=== PATIENT | male | born 1995 | race Caucasian/White ===

== ENCOUNTER 2021-04-14 20:44 | Inpatient (IN) | payer OTHER, SELFPAY ==
[2021-04-14] MEDS: traZODone HCL 50 MG TABLET PO (22:52)
[2021-04-14] MEDS: OLANZapine ODT 10 MG TAB.RAPDIS TRANSLINGU (22:52)
[2021-04-14 23:05] VITALS: BP 104/59; PULSE 56; TEMP 36
[2021-04-14 23:17] VITALS: BMI 19.8
--- NOTE | 2021-04-15 00:22 | PC.NURSE ---
Pt is a CV, but signed a 3-day notice shortly after arriving on unit. Pt's belongings are lost at [facility] per EMS who brought pt. EMS said [facility] will send belongings to [facility] when they are found.
--- NOTE | 2021-04-15 00:24 | PC.ADMIT ---
A male pt aged 25 years was admitted to [facility] as [facility] CV at 2101 following referral from [facility] and [facility] ED. Pt has no previous admissions here but has IPLOC elsewhere. Pt had two [facility] assessments in February 2021 presenting then as delusional, disorganized with some question if pt could be safe at home as he had turned on a burner for the stove and walked away for hours. Pt's brother reports that in the past year pt has engaged in headbanging, running from things that are not there and knife throwing. Brother also reported pt has a history of presenting as ok, then returns home and continues with unsafe behaviors and mood changes. Pt lives with his mother and 3 sisters. Pt is not able to return home until he is stabilized on medications per pt's brother. Pt's sister called for this [facility] assessment reporting pt was headbanging, not taking medications and trying to kill himself . Sister reported pt had run into oncoming traffic and was thinking someone was following himCare team assessment indicates pt has poor self control and is a risk for elopement. Pt was calm and cooperative, but denied anxiety/depression, AH/VH, and paranoia. Pt reported poor sleep r/t insomnia and frequent awakening. Pt willingly took medications, but was focused on whether they would help with sleep. Medical issues include only a history of finger surgery, ring finger, right hand in 2018. Pt c/o body and finger pain 6-7/10, but declined PRN med for pain. Pt denied use of Etoh or substances then admitted cocaine use; t POTRER was positive for cocaine. Pt had Section 35 in January 2021.Pt was placed on 5 minute safety checks with unlocked bathroom and is resting in room at this time. [id number]-[id number]-[id number] and Dr-to-Dr done; initial treatment plan done and admission orders obtained.
[2021-04-15 05:51] VITALS: BP 109/60; PULSE 62; TEMP 36.2; O2SAT 97
[2021-04-15 08:10] LABS: Estimated Average Glucose 100 mg/dL; Hemoglobin A1c % 5.1 %
[2021-04-15 08:22] LABS: Alanine Aminotransferase 24 U/L (0-40); Albumin Level 4.1 g/dL (3.5-5.0); Alkaline Phosphatase 75 U/L (39-117); Anion Gap 12 (12-20); Aspartate Amino Transferase 21 U/L (5-37); Bilirubin Total 0.3 mg/dL (0.0-1.0); Blood Urea Nitrogen 15 mg/dL (9-16); Calcium 9.3 mg/dL (8.4-10.2); Carbon Dioxide 25 mmol/L (22-29); Chloride 108 mmol/L (96-108); Cholesterol 173 mg/dL; Creatinine Clr Calc Pharmacy 98.5; Estimated Glomerular Filt Rate > 60; Glucose Fasting 98 mg/dL (60-99); HDL Cholesterol 49 mg/dL; LDL Cholesterol Calculated 104 mg/dl; Potassium 4.3 mmol/L (3.3-5.1); Sodium 141 mmol/L (135-145); Total Protein 6.8 g/dL (6.5-8.0); Triglycerides 104 mg/dL
[2021-04-15 08:46] LABS: Thyroid Stimulating Hormone 1.07 uIU/mL (0.32-4.0)
[2021-04-15] MEDS: OLANZapine ODT 10 MG TAB.RAPDIS TRANSLINGU ×2 (09:11→20:06)
--- NOTE | 2021-04-15 10:48 | P.HPPS_ITS ---
HPI Date of Service: 04/15/21 Chief Complaint: Unspecified Mental Disorder Sources of Information: patient interviewed, chart reviewed and crisis/core team assessment reviewed HPI Subjective Notes: 3 Day Healthcare Proxy: No Guardianship: No Medical Problems Affecting Mental Status: No Narrative: 25 year old man who was referred from [facility]. He had presented with increased agitation, delusions, paranoia and medication non-compliance. There is also a question of substance abuse. He has had some behavioral dyscontrol with head banging and threatening his family members. He reportedly had a psychiatric admission in [facility]. Prakash himself denies that he has any difficulty. He reports that he went to the ER because of finger pain. He gave monosyllabic answers, and denied any symptoms. He was notably dishevelled and withdrawn. He appears to be responding to internal stimuli Past Psychiatric History: Admission in February 2021 Medical Evaluation Reviewed: Yes [facility] Surgical History History of arthroplasty of finger of right hand Family History: Unknown Social History: Lives with family Substance History: Cocaine Diagnostics Vital Signs (24Hr): Vital Signs - 24 hr 04/14/21 23:05 04/15/21 05:51 Temperature 96.8 F 97.1 F Pulse Rate 56 62 Blood Pressure 104/59 L 109/60 Pulse Oximetry 97 BMI result Body Mass Index 19.8 Labs Results: 04/15/21 07:16 Labs: Laboratory Results - last 48 hr 04/15/21 04/15/21 07:16 07:16 Sodium 141 Potassium 4.3 Chloride 108 Carbon Dioxide 25 Anion Gap 12 BUN 15 Creatinine 0.94 Estim Creat Clear Calc 98.5 Estimated GFR > 60 Fasting Glucose 98 Estimat Average Glucose 100 Hemoglobin A1c % 5.1 Calcium 9.3 Total Bilirubin 0.3 AST 21 ALT 24 Alkaline Phosphatase 75 Total Protein 6.8 Albumin 4.1 Triglycerides 104 Cholesterol 173 LDL Cholesterol, Calc 104 HDL Cholesterol 49 TSH 1.07 Meds/Allergies Meds Home Medications Acetaminophen (Acetaminophen 325 Mg Tablet) 650 mg PO Q6H PRN PRN Reason: Headache/Pain Mild Scale (1-3) Al Hydroxide/Mg Hydroxide (Magnesium Hydrox/Alum Hydrox 30 Ml Oral.Susp) 30 ml PO Q6H PRN PRN Reason: Heartburn/Nausea Haloperidol (Haloperidol 5 Mg Tablet) 5 mg PO Q6H PRN PRN Reason: agitation Hydroxyzine HCl (Hydroxyzine Hcl 25 Mg Tablet) 25 mg PO Q6H PRN PRN Reason: Anxiety Lorazepam (Lorazepam 1 Mg Tablet) 1 mg PO Q4H PRN PRN Reason: anxiety/agitation/sleep Magnesium Hydroxide (Milk Of Magnesia 30 Ml Oral.Susp) 30 ml PO DAILY PRN PRN Reason: Constipation Olanzapine (Olanzapine Odt 10 Mg Tab.Rapdis) 10 mg TRANSLINGU BID ANA Last Admin: 04/15/21 09:11 Dose: 10 mg Documented by: Trazodone HCl (Trazodone Hcl 50 Mg Tablet) 50 mg PO BEDTIME PRN PRN Reason: Insomnia Last Admin: 04/14/21 22:52 Dose: 50 mg Documented by: Allergies Allergies Allergy/AdvReac Type Severity Reaction Status Date / Time No Known Allergies Allergy Verified 04/14/21 14:39 Mental Status Exam Mental Status Exam Patient Appearance: Disheveled Patient Orientation: Person and Place Level of Consciousness: Restless Patient Behavior: Guarded, Restless, Fatigued, Isolative and Uncooperative Mood Description: Apathetic and Blunted Affect Description: Blunted Patient Cognition Impaired: No Ability to Follow Directions: Fair Speech Pattern: Monotone Hallucinations: Auditory Delusions: Paranoid Ideation and Present Thought Content: positive for Thought Blocking, positive for Slowed Thinking, ne gative for Suicidal Ideation or negative for Homicidal Ideation Judgement: Poor Assessment & Plan Assessment & Plan (1) Schizophrenia: Status: Acute Code(s): F20.9 - Schizophrenia, unspecified Assessment and Plan: 25 year old man with psychosis, in the context of medication non-compliance and substance abuse 3 day notice 5 min checks Resume olanzapine Monitor for WD Collect collateral history Patient educated on: diagnosis and medication risk/benefits Informed Consent: does not understand Reason for continued inpatient stay Substantial Risk for: inability to function
[2021-04-15 19:20] VITALS: BP 107/57; PULSE 73; TEMP 30.9
[2021-04-15] MEDS: traZODone HCL 50 MG TABLET PO (20:05)
[2021-04-15] MEDS: Acetaminophen 325 MG TABLET 650 MG PO (20:06)
[2021-04-16] MEDS: OLANZapine ODT 10 MG TAB.RAPDIS TRANSLINGU ×2 (08:14→19:31)
--- NOTE | 2021-04-16 11:36 | P.CNHOSGPS_ITS ---
History of Present Illness Data of Consult Service Date: 04/16/21 Primary Care Provider: Tyler Duffy MD HPI Reason for consult: h and p 25M Admitted to inpatient psychiatry for increased agitation delusions and paranoia. Patient is poor historian, but denies any active medical issues, is not on any chronic medications. Denies chest pain, shortness of breath, fever chills Review of Systems Review of Systems: Yes all other systems are reviewed and are negative PMFSH Pertinent family history: patient says he does not know his families medical conditions Surgical History History of arthroplasty of finger of right hand Social History Household Members: Family Housing: Apartment Do you presently have visiting nurse or other home services: No Patient Tobacco Use Status: Current everyday Tobacco user Tobacco use type: Cigarette Cigarettes Per Day: 4 Years Smoked: less than one year Smoked in Last 30 Days: Yes e-Cigarette/Vaping Use: Never Used Patient Interested in Nicotine Replacement: Yes (Pt wants PRN Nicotine gum) Patient Given Instructions on How to Stop Smoking: Yes (T not interested in quitting at this time) Date Education Initiated: 04/14/21 Second Hand Smoke Exposure: No Substance Use Type: Crack/Cocaine Substance Use Type Other:: PORTER positive for cocaine and marijuana Last Used Substance: Weeks (ago) Currently Displaying Signs/Symptoms of Drug Intoxication Withdrawal: No Any prior treatment program specific to substance use: Yes (Pt had section 35 recently) Have you been hit, kicked, punched, or otherwise hurt by someone within the past year? If so, by whom?: No Do you feel safe in your current relationship?: No Is there a partner from a previous relationship who is making you feel unsafe now?: No Are you made to feel afraid or neglected: No Spiritual Healthcare Practices: None Pentecostal Healthcare Practices: None Cultural Healthcare Practices: None Advance Directives: No Advance Directives Information Provided: No Advance Directives on File: No Do you have thoughts of harming others: None Do you have a plan to hurt others: No Plan Recently lost weight without trying: No Eating poorly because of decreased appetite: Yes Nutrition Risks: No Nutritional Risk Poor oral hygiene: No Meds Allergies Allergy/AdvReac Type Severity Reaction Status Date / Time No Known Allergies Allergy Verified 04/14/21 14:39 Active Medications: Current Medications Acetaminophen (Acetaminophen 325 Mg Tablet) 650 mg PO Q6H PRN PRN Reason: Headache/Pain Mild Scale (1-3) Last Admin: 04/15/21 20:06 Dose: 650 mg Documented by: Al Hydroxide/Mg Hydroxide (Magnesium Hydrox/Alum Hydrox 30 Ml Oral.Susp) 30 ml PO Q6H PRN PRN Reason: Heartburn/Nausea Haloperidol (Haloperidol 5 Mg Tablet) 5 mg PO Q6H PRN PRN Reason: agitation Hydroxyzine HCl (Hydroxyzine Hcl 25 Mg Tablet) 25 mg PO Q6H PRN PRN Reason: Anxiety Lorazepam (Lorazepam 1 Mg Tablet) 1 mg PO Q4H PRN PRN Reason: anxiety/agitation/sleep Magnesium Hydroxide (Milk Of Magnesia 30 Ml Oral.Susp) 30 ml PO DAILY PRN PRN Reason: Constipation Olanzapine (Olanzapine Odt 10 Mg Tab.Rapdis) 10 mg TRANSLINGU BID ANA Last Admin: 04/16/21 08:14 Dose: 10 mg Documented by: Trazodone HCl (Trazodone Hcl 50 Mg Tablet) 50 mg PO BEDTIME PRN PRN Reason: Insomnia Last Admin: 04/15/21 20:05 Dose: 50 mg Documented by: Results Labs CBC and Chem 7: 04/15/21 07:16 Assessment and Plan (1) Schizophrenia: Status: Acute Plan 25M admitted to inpatient pscyhiatry no active medical issues, please recall as needed Physical Exam Vital Signs: Last Vital Signs Temp 87.7 F L 04/15/21 19:20 Pulse 73 04/15/21 19:20 BP 107/57 L 04/15/21 19:20 Pulse Ox 97 04/15/21 05:51 BMI result Body Mass Index 19.8 Resp: CTA bilateral, no accessory muscles used CVS: S1,S2,RRR GI: soft, non tender, non distended Neuro: motor grossly intact, alert Neuro Cranial nerves: Yes CN's II-XII intact bilaterally
[2021-04-16] MEDS: Ibuprofen 600 MG TABLET PO ×2 (14:12→20:47)
--- NOTE | 2021-04-16 17:28 | P.PNPSI_ITS ---
Subjective Subjective Date of Service: 04/16/21 Reason For Visit: Unspecified Mental Disorder Interim History: Prakash was quite disheveled. He continues to assert that he dose not need any tr eatment. Medication Compliance: Yes Side effects from medications: No Mental Status Exam Mental Status Exam Patient Appearance: Disheveled Patient Orientation: Person and Place Level of Consciousness: Restless Patient Behavior: Guarded, Restless, Fatigued, Isolative and Uncooperative Mood Description: Apathetic and Blunted Affect Description: Blunted Patient Cognition Impaired: No Ability to Follow Directions: Fair Speech Pattern: Monotone Hallucinations: Auditory Delusions: Paranoid Ideation and Present Thought Content: positive for Thought Blocking, positive for Slowed Thinking, negative for Suicidal Ideation or negative for Homicidal Ideation Judgement: Poor Diagnostics Vital Signs (24Hr): Vital Signs - 24 hr 04/15/21 19:20 Temperature 87.7 F L Pulse Rate 73 Blood Pressure 107/57 L BMI result Body Mass Index 19.8 Labs Results: 04/15/21 07:16 Labs: Laboratory Results - last 48 hr 04/15/21 04/15/21 07:16 07:16 Sodium 141 Potassium 4.3 Chloride 108 Carbon Dioxide 25 Anion Gap 12 BUN 15 Creatinine 0.94 Estim Creat Clear Calc 98.5 Estimated GFR > 60 Fasting Glucose 98 Estimat Average Glucose 100 Hemoglobin A1c % 5.1 Calcium 9.3 Total Bilirubin 0.3 AST 21 ALT 24 Alkaline Phosphatase 75 Total Protein 6.8 Albumin 4.1 Triglycerides 104 Cholesterol 173 LDL Cholesterol, Calc 104 HDL Cholesterol 49 TSH 1.07 Medications Medications Current Medications Acetaminophen (Acetaminophen 325 Mg Tablet) 650 mg PO Q6H PRN PRN Reason: Headache/Pain Mild Scale (1-3) Last Admin: 04/15/21 20:06 Dose: 650 mg Documented by: Al Hydroxide/Mg Hydroxide (Magnesium Hydrox/Alum Hydrox 30 Ml Oral.Susp) 30 ml PO Q6H PRN PRN Reason: Heartburn/Nausea Haloperidol (Haloperidol 5 Mg Tablet) 5 mg PO Q6H PRN PRN Reason: agitation Hydroxyzine HCl (Hydroxyzine Hcl 25 Mg Tablet) 25 mg PO Q6H PRN PRN Reason: Anxiety Ibuprofen (Ibuprofen 600 Mg Tablet) 600 mg PO Q6H PRN PRN Reason: Pain, Moderate (Pain Scale 4-6 Last Admin: 04/16/21 14:12 Dose: 600 mg Documented by: Lorazepam (Lorazepam 1 Mg Tablet) 1 mg PO Q4H PRN PRN Reason: anxiety/agitation/sleep Magnesium Hydroxide (Milk Of Magnesia 30 Ml Oral.Susp) 30 ml PO DAILY PRN PRN Reason: Constipation Olanzapine (Olanzapine Odt 10 Mg Tab.Rapdis) 10 mg TRANSLINGU BID ANA Last Admin: 04/16/21 08:14 Dose: 10 mg Documented by: Trazodone HCl (Trazodone Hcl 50 Mg Tablet) 50 mg PO BEDTIME PRN PRN Reason: Insomnia Last Admin: 04/15/21 20:05 Dose: 50 mg Documented by: Allergies Allergies Allergy/AdvReac Type Severity Reaction Status Date / Time No Known Allergies Allergy Verified 04/14/21 14:39 Assessment & Plan Assessment & Plan (1) Schizophrenia: Status: Acute Code(s): F20.9 - Schizophrenia, unspecified Plan 25M admitted to inpatient pscyhiatry no active medical issues, please recall as needed I spent minutes with the patient and/or on the patient floor today, greater than?50% of which was spent counseling/coordinating care. Patient educated on: diagnosis and medication risk/benefits Informed Consent: further education needed Reason for contiued inpatient stay Substantial Risk for: inability to function
[2021-04-16 18:39] VITALS: BP 134/71; PULSE 54
[2021-04-16] MEDS: traZODone HCL 50 MG TABLET PO (19:31)
[2021-04-16] MEDS: hydrOXYzine HCL 25 MG TABLET PO (19:31)
[2021-04-17 06:00] VITALS: BP 110/62; PULSE 54; TEMP 36.3; O2SAT 98
[2021-04-17] MEDS: OLANZapine ODT 10 MG TAB.RAPDIS TRANSLINGU ×2 (08:59→19:26)
[2021-04-17] MEDS: hydrOXYzine HCL 25 MG TABLET PO ×3 (08:59→19:25)
--- NOTE | 2021-04-17 10:04 | HO.PSYCHPN ---
Subjective Subjective Date of Service: 04/17/21 Reason For Visit: Unspecified Mental Disorder Subjective Notes: Alvarado Warning, Conditional Voluntary and 3 Day Interim History: Patient says that [facility] and that original language is Nap[place]e. Baton Twirler offers to get an oxygen furnace operator but patient says that he understands. Patient disheveled; eager to speak with underwriter mortgage loan. Patient says that he had signed a 3 day and would like to go home. Baton Twirler gave Alvarado warning and asked to talk. Patient at 1st said he is fine, he is not sure why he came to unit. Referring to Crisis note, underwriter mortgage loan inquired and pt denies that he banged his head and he denies any made any threats to family or anyone else. He denies any SI or HI. Patient said that he has been worried people are following him a little bit. He does not know why they are following him but he thinks that whoever they are have some bad idea as. He was worried they were waiting for him outside of his house but patient cannot say much more about it. He does endorse having auditory hallucinations that say what to do to wrong question and also endorses that he sometimes hears multiple voices talking to each other about him. Later patient did say he did Bang his head to make the voices stop. It was difficult to know if he hit his head with his hand or on something. Patient did say he ran into the traffic but gave an odd reason saying that he accidentally drinks some water which was hot; he dropped the glass which hurt his hand and in a frantic response ran out into the traffic. He repeatedly denies that he has made any threats to his family. He does give permission to call his family, including his sister Benita and discussed case with him. Patient is willing to take Zyprexa which he has been on the unit. He says he was recently at [facility] for 3 weeks. Patient says he wants to discharge because he has a daughter and son in [facility]. He reiterates that he is ready to go. Mental Status Exam Mental Status Exam Narrative: Patient Appearance:?Disheveled Patient Orientation:?Person and Place Level of Consciousness:?alert, oriented Patient Behavior:?cooperative, calm Mood Description:? good Affect Description:?Blunted Patient Cognition Impaired:?No Ability to Follow Directions:?Fair Thought process: goal oriented; perseverative on discharge Hallucinations:?AH Delusions:?Paranoid Ideation of being followed Thought Content: Denies SI or HI; Judgment/insight:?impaired Diagnostics Vital Signs (24Hr): Vital Signs - 24 hr 04/16/21 18:39 04/17/21 06:00 Temperature 97.4 F Pulse Rate 54 54 Blood Pressure 134/71 110/62 Pulse Oximetry 98 BMI result Body Mass Index 19.8 Labs Results: 04/15/21 07:16 Medications Medications Current Medications Acetaminophen (Acetaminophen 325 Mg Tablet) 650 mg PO Q6H PRN PRN Reason: Headache/Pain Mild Scale (1-3) Last Admin: 04/15/21 20:06 Dose: 650 mg Documented by: Al Hydroxide/Mg Hydroxide (Magnesium Hydrox/Alum Hydrox 30 Ml Oral.Susp) 30 ml PO Q6H PRN PRN Reason: Heartburn/Nausea Haloperidol (Haloperidol 5 Mg Tablet) 5 mg PO Q6H PRN PRN Reason: agitation Hydroxyzine HCl (Hydroxyzine Hcl 25 Mg Tablet) 25 mg PO Q6H PRN PRN Reason: Anxiety Last Admin: 04/17/21 08:59 Dose: 25 mg Documented by: Ibuprofen (Ibuprofen 600 Mg Tablet) 600 mg PO Q6H PRN PRN Reason: Pain, Moderate (Pain Scale 4-6 Last Admin: 04/16/21 20:47 Dose: 600 mg Documented by: Lorazepam (Lorazepam 1 Mg Tablet) 1 mg PO Q4H PRN PRN Reason: anxiety/agitation/sleep Magnesium Hydroxide (Milk Of Magnesia 30 Ml Oral.Susp) 30 ml PO DAILY PRN PRN Reason: Constipation Nicotine Polacrilex (Nicotine Polacrilex 2 Mg Gum) 2 mg BUCCAL Q2H PRN PRN Reason: nicotine cessation Olanzapine (Olanzapine Odt 10 Mg Tab.Rapdis) 10 mg TRANSLINGU BID ANA Last Admin: 04/17/21 08:59 Dose: 10 mg Documented by: Trazodone HCl (Trazodone Hcl 50 Mg Tablet) 50 mg PO BEDTIME PRN PRN Reason: Insomnia Last Admin: 04/16/21 19:31 Dose: 50 mg Documented by: Allergies Allergies Allergy/AdvReac Type Severity Reaction Status Date / Time No Known Allergies Allergy Verified 04/14/21 14:39 Assessment & Plan Assessment & Plan (1) Schizophrenia: Status: Acute Code(s): F20.9 - Schizophrenia, unspecified Plan Pt is a 25 yo male, history of psychotic disorder presents for what his family reports is unsafe behavior in the community. Patient is a poor historian without any insight. He endorses auditory hallucinations and paranoid delusions but does not recognize them and has symptoms of a psychiatric disorder. However he is taking Zyprexa 10 mg b.i.d.. Patient is repeatedly asking for discharge. At this time it is not clear to what level patient was being unsafe in the community; it is also not clear if he has a home to return to Plan: Three day notice Q 15 minute checks Continue Zyprexa 10 mg b.i.d. Will see collateral Will repeat CBC as WBC was mildly elevated Baton Twirler reviewed labs from [facility] and BUN/creatinine, UA, lytes, LFTs all within normal limits. Patient was positive for cocaine and had elevated CK I spent minutes with the patient and/or on the patient floor today, greater than?50% of which was spent counseling/coordinating care. Patient educated on: diagnosis and medication risk/benefits Informed Consent: understands Reason for contiued inpatient stay Substantial Risk for: rapid decompensation
[2021-04-17] MEDS: Ibuprofen 600 MG TABLET PO ×2 (13:14→20:09)
[2021-04-17] MEDS: Nicotine Polacrilex 2 MG GUM BUCCAL ×2 (13:15→19:57)
[2021-04-17] MEDS: HaloperidoL 5 MG TABLET PO ×2 (14:56→19:57)
[2021-04-17] MEDS: traZODone HCL 50 MG TABLET PO (19:25)
[2021-04-17 20:24] VITALS: BP 130/80; PULSE 75
[2021-04-17] MEDS: LORazepam 1 MG TABLET PO (21:33)
[2021-04-18 06:00] VITALS: BP 100/50; PULSE 56; RESP 14; TEMP 36.4; O2SAT 100
[2021-04-18] MEDS: OLANZapine ODT 10 MG TAB.RAPDIS TRANSLINGU ×2 (08:04→19:45)
[2021-04-18] MEDS: hydrOXYzine HCL 25 MG TABLET PO ×3 (08:04→19:51)
[2021-04-18] MEDS: HaloperidoL 5 MG TABLET PO ×3 (08:04→19:51)
[2021-04-18 08:29] LABS: MANUAL DIFF FLAG NO
[2021-04-18 08:33] LABS: Basophils Percent Auto 0.6 % (0-2); Eosinophils Absolute Auto 0.2 X10*3/uL (0.0-0.4); Hematocrit 45.3 % (42.0-52.0); Hemoglobin 14.6 g/dl (14.0-18.0); Imm Gran Abs Auto 0.01 X10*3/uL (0.00-0.03); Imm Gran Pct Auto 0.2 % (0.0-0.4); Lymphocytes Absolute Auto 2.7 X10*3/uL (1.2-4.9); Mean Corpuscular HGB Conc 32.2 g/dl (31.0-36.0); Mean Corpuscular Hemoglobin 28.8 pg (27.0-33.0); Mean Corpuscular Volume 89.3 fL (80.0-98.0); Mean Platelet Volume 10.6 fL (9.4-12.4); Monocytes Absolute Auto 0.3 X10*3/uL (0.1-1.2); Neutrophils Absolute Auto 1.6 x10*3/uL (2.0-8.3); Neutrophils Percent Auto 32.2 % (45-73); Platelet Count 196 X10*3/uL (160-400); Red Blood Count 5.07 X10*6/uL (4.60-5.80); Red Cell Distribution Width 12.5 % (11.0-16.0); White Blood Count 4.8 X10*3/uL (4.8-10.8)
[2021-04-18] MEDS: Ibuprofen 600 MG TABLET PO ×2 (10:03→15:58)
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
[2021-04-18] MEDS: Nicotine Polacrilex 2 MG GUM BUCCAL ×2 (13:07→19:45)
[2021-04-18] MEDS: LORazepam 1 MG TABLET PO ×2 (14:20→18:38)
[2021-04-18] MEDS: traZODone HCL 50 MG TABLET PO (19:45)
[2021-04-19 06:00] VITALS: BP 103/50; PULSE 51; RESP 16; TEMP 36.2; O2SAT 98
[2021-04-19] MEDS: OLANZapine ODT 10 MG TAB.RAPDIS TRANSLINGU ×2 (08:34→19:38)
[2021-04-19] MEDS: Ibuprofen 600 MG TABLET PO ×2 (08:39→17:47)
--- NOTE | 2021-04-19 10:26 | P.PNPSI_ITS ---
Subjective Subjective Date of Service: 04/19/21 Reason For Visit: Unspecified Mental Disorder Interim History: pt repeated that he needs to discharge and go home. It was difficult to engage patient in meaningful discussion about his treatment, symptoms, hx. Convertible Sofa Bedspring Tester repeatedly tried to explain that tx team does not think that pt is ready to go home to which pt said no. When saying his sister is scared, he responds no; she not scared. i need to go home Convertible Sofa Bedspring Tester explained 3 day notice and process with License Inspector involvement, to which pt said no..I dont' need a environmental sustainability manager. Pt repeated that he needs to discharge...that he is safe, his family is safe...he needs to go home. No other discussion point was productive. Yesterday evening to staff he reported he's worried that people are out to get him, however to policy writer sales today he denied persecutory fears and AH. Mental Status Exam Mental Status Exam Narrative: Patient Appearance:?Disheveled, messy, tangled hair Patient Orientation:?Person and Place Level of Consciousness:?alert, oriented Patient Behavior:?cooperative, calm Mood Description:? good Affect Description:?constricted Patient Cognition Impaired:?No Ability to Follow Directions:?Fair Thought process: goal oriented; perseverative on discharge Hallucinations:?AH (denies) Delusions:?Paranoid Ideation of being followed Thought Content: Denies SI or HI; Judgment/insight:?impaired Diagnostics Vital Signs (24Hr): Vital Signs - 24 hr 04/19/21 06:00 Temperature 97.2 F Pulse Rate 51 Respiratory Rate 16 Blood Pressure 103/50 L Pulse Oximetry 98 BMI result Body Mass Index 19.8 Labs Results: 04/18/21 07:59 04/15/21 07:16 Labs: Laboratory Results - last 48 hr 04/18/21 07:59 WBC 4.8 RBC 5.07 Hgb 14.6 Hct 45.3 MCV 89.3 MCH 28.8 MCHC 32.2 RDW 12.5 Plt Count 196 MPV 10.6 Immature Gran % (Auto) 0.2 Neut % (Auto) 32.2 L Lymph % (Auto) 55.0 H Rook[place] % (Auto) 7.0 Eos % (Auto) 5.0 H Baso % (Auto) 0.6 Lymph # (Auto) 2.7 [place]ook[place] # (Auto) 0.3 Eos # (Auto) 0.2 Baso # (Auto) 0.0 Abs Immat Gran (auto) 0.01 Absolute Neuts (auto) 1.6 L Absolute Nucleated RBC 0.000 Nucleated RBC % (auto) 0.0 Medications Medications Current Medications Acetaminophen (Acetaminophen 325 Mg Tablet) 650 mg PO Q6H PRN PRN Reason: Headache/Pain Mild Scale (1-3) Last Admin: 04/15/21 20:06 Dose: 650 mg Documented by: Al Hydroxide/Mg Hydroxide (Magnesium Hydrox/Alum Hydrox 30 Ml Oral.Susp) 30 ml PO Q6H PRN PRN Reason: Heartburn/Nausea Haloperidol (Haloperidol 5 Mg Tablet) 5 mg PO Q6H PRN PRN Reason: agitation Last Admin: 04/18/21 19:51 Dose: 5 mg Documented by: Hydroxyzine HCl (Hydroxyzine Hcl 25 Mg Tablet) 25 mg PO Q6H PRN PRN Reason: Anxiety Last Admin: 04/18/21 19:51 Dose: 25 mg Documented by: Ibuprofen (Ibuprofen 600 Mg Tablet) 600 mg PO Q6H PRN PRN Reason: Pain, Moderate (Pain Scale 4-6 Last Admin: 04/19/21 08:39 Dose: 600 mg Documented by: Lorazepam (Lorazepam 1 Mg Tablet) 1 mg PO Q4H PRN PRN Reason: anxiety/agitation/sleep Last Admin: 04/18/21 18:38 Dose: 1 mg Documented by: Magnesium Hydroxide (Milk Of Magnesia 30 Ml Oral.Susp) 30 ml PO DAILY PRN PRN Reason: Constipation Nicotine Polacrilex (Nicotine Polacrilex 2 Mg Gum) 2 mg BUCCAL Q2H PRN PRN Reason: nicotine cessation Last Admin: 04/18/21 19:45 Dose: 2 mg Documented by: Olanzapine (Olanzapine Odt 10 Mg Tab.Rapdis) 10 mg TRANSLINGU BID ANA Last Admin: 04/19/21 08:34 Dose: 10 mg Documented by: Trazodone HCl (Trazodone Hcl 50 Mg Tablet) 50 mg PO BEDTIME PRN PRN Reason: Insomnia Last Admin: 04/18/21 19:45 Dose: 50 mg Documented by: Allergies Allergies Allergy/AdvReac Type Severity Reaction Status Date / Time No Known Allergies Allergy Verified 04/14/21 14:39 Assessment & Plan Assessment & Plan (1) Schizophrenia: Status: Acute Code(s): F20.9 - Schizophrenia, unspecified (2) Cocaine abuse: Status: Acute Code(s): F14.10 - Cocaine abuse, uncomplicated Plan Pt is a 25 yo male, history of psychotic disorder presents for what his family reports is unsafe behavior in the community. Patient is a poor historian without any insight. He endorses auditory hallucinations and paranoid delusions but does not recognize them and has symptoms of a psychiatric disorder. However he is taking Zyprexa 10 mg b.i.d.. Patient is repeatedly asking for discharge. At this time it is not clear to what level patient was being unsafe in the community; it is also not clear if he has a home to return to 04/18 patient's sister provided collateral information and reports that patient engages in unsafe behavior, acting and speaking in a disorganized way and with paranoid thinking; she reports that she and family feels scared around him. Patient does say that he has auditory hallucinations and is worried people are following him. Patient however wants discharge. Patient does not acknowledge his unsafe or disorganized behavior and lacks insight it to his psychiatric illness; although he is currently taking antipsychotic medication he lacks insight into what it is for and his history is to stop medication upon discharge. Regarding cocaine use, patient said that he just used it 1 time when he was walking on the street and somewhat offered to him; this however seems incongruent given the fact that he was court ordered to a Section 35, January 2021 and was positive for cocaine on this Given these behaviors, how the family is scared of him, his drug abuse, his lack of insight and the high likelihood that pt will discontinue medication, policy writer sales and team find that patient is in imminent risk of harm to both himself and others is unsafe for discharge at this time and team will petition court for involuntary comittment. Plan: Will petition court for involuntary commitment. Q 15 minute checks Continue Zyprexa 10 mg b.i.d; there seems to be some improvement with zyprexa but pt continues to lack insight ordered for [facility] global marketing coordinator to help with interview. repeat WBC WNL Convertible Sofa Bedspring Tester reviewed labs from [facility] and BUN/creatinine, UA, lytes, LFTs all within normal limits. Patient was positive for cocaine and had elevated CK I spent minutes with the patient and/or on the patient floor today, greater than?50% of which was spent counseling/coordinating care. Patient educated on: diagnosis Informed Consent: further education needed Reason for contiued inpatient stay Substantial Risk for: harm to self, inability to function, rapid decompensation and med/psych decompensation
[2021-04-19] MEDS: hydrOXYzine HCL 25 MG TABLET PO ×2 (12:25→19:38)
[2021-04-19] MEDS: Nicotine Polacrilex 2 MG GUM BUCCAL ×2 (12:26→14:31)
[2021-04-19] MEDS: HaloperidoL 5 MG TABLET PO ×2 (14:31→20:54)
[2021-04-19] MEDS: LORazepam 1 MG TABLET PO (17:47)
[2021-04-19 19:30] VITALS: BP 132/72; PULSE 69; RESP 16; TEMP 36.6; O2SAT 100
[2021-04-19] MEDS: traZODone HCL 50 MG TABLET PO (19:38)
[2021-04-20 05:47] VITALS: BP 100/67; PULSE 89; RESP 18; TEMP 36.4; O2SAT 100
[2021-04-20 07:00] VITALS: BMI 23.8
[2021-04-20 08:24] VITALS: BP 100/67; PULSE 89; RESP 18; TEMP 36.4; O2SAT 99
[2021-04-20] MEDS: Acetaminophen 325 MG TABLET 650 MG PO (08:58)
[2021-04-20] MEDS: OLANZapine ODT 10 MG TAB.RAPDIS TRANSLINGU ×2 (08:58→19:21)
[2021-04-20] MEDS: hydrOXYzine HCL 25 MG TABLET PO ×2 (12:33→15:49)
[2021-04-20] MEDS: Ibuprofen 600 MG TABLET PO ×2 (12:33→19:21)
[2021-04-20] MEDS: HaloperidoL 5 MG TABLET PO (14:44)
[2021-04-20] MEDS: LORazepam 1 MG TABLET PO (15:49)
--- NOTE | 2021-04-20 16:04 | HO.PSYCHPN ---
Subjective Subjective Date of Service: 04/20/21 Reason For Visit: Unspecified Mental Disorder Interim History: Patient seen and discussed with team. Patient evaluated today and upon interview he reports Im doing good, denies SE on olanzapine. Sleep is good. Says the medication is helping. Denies A/VH. Attended group. Pt does not appear to be a reliable transportation assistant, as he is constricted, perseverative on discharge, repeats I need to discharge and I need to go. Discussed that he is now on a section 7 pending 8. In the milieu, patient is safe but guarded in behavior, pacing the halls, frequently stops T/W to ask if I know when he will be discharged despite being provided education on Section 7. Denies SI/SIB/HI upon inquiry. Denies irritability or assaultive ideation. Says he feels safe. Medication Compliance: Yes Side effects from medications: No Attending Groups: Yes Review of Systems Acute medical concerns: No Medical Review of Systems: unchanged Mental Status Exam Mental Status Exam Narrative: Patient Appearance:?Disheveled, messy, tangled hair Patient Orientation:?Person and Place Level of Consciousness:?alert, oriented Patient Behavior:?cooperative, calm Mood Description:? good Affect Description:?constricted Patient Cognition Impaired:?No Ability to Follow Directions:?Fair Thought process: goal oriented; perseverative on discharge Hallucinations:?AH (denies) Delusions:?Paranoid Ideation of being followed Thought Content: Denies SI or HI; Judgment/insight:?impaired Diagnostics Vital Signs (24Hr): Vital Signs - 24 hr 04/19/21 19:30 04/20/21 05:47 04/20/21 08:24 Temperature 97.9 F 97.5 F 97.5 F Pulse Rate 69 89 89 Respiratory Rate 16 18 18 Blood Pressure 132/72 100/67 100/67 Pulse Oximetry 100 100 99 BMI result Body Mass Index 23.8 Labs Results: 04/18/21 07:59 04/15/21 07:16 Medications Medications Current Medications Acetaminophen (Acetaminophen 325 Mg Tablet) 650 mg PO Q6H PRN PRN Reason: Headache/Pain Mild Scale (1-3) Last Admin: 04/20/21 08:58 Dose: 650 mg Documented by: Al Hydroxide/Mg Hydroxide (Magnesium Hydrox/Alum Hydrox 30 Ml Oral.Susp) 30 ml PO Q6H PRN PRN Reason: Heartburn/Nausea Haloperidol (Haloperidol 5 Mg Tablet) 5 mg PO Q6H PRN PRN Reason: agitation Last Admin: 04/20/21 14:44 Dose: 5 mg Documented by: Hydroxyzine HCl (Hydroxyzine Hcl 25 Mg Tablet) 25 mg PO Q6H PRN PRN Reason: Anxiety Last Admin: 04/20/21 15:49 Dose: 25 mg Documented by: Ibuprofen (Ibuprofen 600 Mg Tablet) 600 mg PO Q6H PRN PRN Reason: Pain, Moderate (Pain Scale 4-6 Last Admin: 04/20/21 12:33 Dose: 600 mg Documented by: Lorazepam (Lorazepam 1 Mg Tablet) 1 mg PO Q4H PRN PRN Reason: anxiety/agitation/sleep Last Admin: 04/20/21 15:49 Dose: 1 mg Documented by: Magnesium Hydroxide (Milk Of Magnesia 30 Ml Oral.Susp) 30 ml PO DAILY PRN PRN Reason: Constipation Nicotine Polacrilex (Nicotine Polacrilex 2 Mg Gum) 2 mg BUCCAL Q2H PRN PRN Reason: nicotine cessation Last Admin: 04/19/21 14:31 Dose: 2 mg Documented by: Olanzapine (Olanzapine Odt 10 Mg Tab.Rapdis) 10 mg TRANSLINGU BID ANA Last Admin: 04/20/21 08:58 Dose: 10 mg Documented by: Trazodone HCl (Trazodone Hcl 50 Mg Tablet) 50 mg PO BEDTIME PRN PRN Reason: Insomnia Last Admin: 04/19/21 19:38 Dose: 50 mg Documented by: Allergies Allergies Allergy/AdvReac Type Severity Reaction Status Date / Time No Known Allergies Allergy Verified 04/14/21 14:39 Assessment & Plan Assessment & Plan (1) Schizophrenia: Status: Acute Code(s): F20.9 - Schizophrenia, unspecified (2) Cocaine abuse: Status: Acute Code(s): F14.10 - Cocaine abuse, uncomplicated Plan Pt is a 25 yo male, history of psychotic disorder presents for what his family reports is unsafe behavior in the community. Patient is a poor historian without any insight. He endorses auditory hallucinations and paranoid delusions but does not recognize them and has symptoms of a psychiatric disorder. However he is taking Zyprexa 10 mg b.i.d.. Patient is repeatedly asking for discharge. At this time it is not clear to what level patient was being unsafe in the community; it is also not clear if he has a home to return to 04/18 patient's sister provided collateral information and reports that patient engages in unsafe behavior, acting and speaking in a disorganized way and with paranoid thinking; she reports that she and family feels scared around him. Patient does say that he has auditory hallucinations and is worried people are following him. Patient however wants discharge. Patient does not acknowledge his unsafe or disorganized behavior and lacks insight it to his psychiatric illness; although he is currently taking antipsychotic medication he lacks insight into what it is for and his history is to stop medication upon discharge. Regarding cocaine use, patient said that he just used it 1 time when he was walking on the street and somewhat offered to him; this however seems incongruent given the fact that he was court ordered to a Section 35January 2021 and was positive for cocaine on this Given these behaviors, how the family is scared of him, his drug abuse, his lack of insight and the high likelihood that pt will discontinue medication, communications writer and team find that patient is in imminent risk of harm to both himself and others is unsafe for discharge at this time and team will petition court for involuntary comittment. 04/19: Pt will continue on olanzapine 10 mg BID, continues to present as constricted, confused/ disorganized, and with poor insight. Plan: Will petition court for involuntary commitment. Q 15 minute checks Continue Zyprexa 10 mg b.i.d; there seems to be some improvement with zyprexa but pt continues to lack insight ordered for [facility] art history professor to help with interview. repeat WBC WNL Biodiesel Operations Manager reviewed labs from [facility] and BUN/creatinine, UA, lytes, LFTs all within normal limits. Patient was positive for cocaine and had elevated CK I spent minutes with the patient and/or on the patient floor today, greater than?50% of which was spent counseling/coordinating care. Reason for contiued inpatient stay Substantial Risk for: rapid decompensation and med/psych decompensation
[2021-04-20] MEDS: Nicotine Polacrilex 2 MG GUM BUCCAL (17:05)
[2021-04-20 18:00] VITALS: BP 121/78; PULSE 69; RESP 16; TEMP 36.7; O2SAT 98
[2021-04-20] MEDS: traZODone HCL 50 MG TABLET PO (19:22)
[2021-04-21 06:00] VITALS: BP 105/69; PULSE 85; RESP 18; TEMP 36.4; O2SAT 100
[2021-04-21] MEDS: OLANZapine ODT 10 MG TAB.RAPDIS TRANSLINGU ×2 (08:42→19:36)
[2021-04-21] MEDS: Ibuprofen 600 MG TABLET PO ×2 (08:48→19:36)
--- NOTE | 2021-04-21 10:23 | P.PNPSI_ITS ---
Subjective Subjective Date of Service: 04/21/21 Reason For Visit: Unspecified Mental Disorder Interim History: [facility] interpreter for the deaf When asked why patient came here he had 1st reiterated that he got hot water on his hand and ran out into the street to put ice on it. When he came back his family had called crisis in the police. He said also he had smoked crack cocaine once which may be part of it. He also at 1st said that it is not true that his sister and family were scared of and he also denied that he ever left the gas stove on. He said I am 25 years old. I cook I clean and when I am done cocaine I turned the gas off. However patient did acknowledge that when he 1st got here and the week prior to, he was worried that people were following him. He said he did not know if what he thought was a reality but he was afraid that someone was following him and coming up behind him. He also says he was having auditory hallucinations that would come on suddenly and scare him. He heard a voice say that someone is coming to kill him someone is coming to hit him which made him scared. Patient says that since he has been on the medication all the voices are gone. He also agreed that because of his delusion and auditory hallucinations he was hiding himself in the house, fearful. Upon reflection he agreed that this is probably why his family was feeling scared of him. Patient says this Zyprexa has made him feel much better. Poly Packer And Heat Sealer discussed his diagnosis and the symptoms of schizophrenia and also how without medication, the voices and fears will very likely return. Patient said that he likes the medication and will continue taking it on discharge. Patient's 3 day notice and petition to the court was discussed and patient understood why the hospital did not let him go right away. He agreed to retract his 3 day notice as the team agreed to work on discharging him early next week, just wanting to get appointments set in place and also to involve his sister in his discharge plan. Patient did retract to 3 day notice. He also put a new 1 in afterwards but just as an insurance policy. Regarding crack cocaine use, patient said that he was smoking about 4 to 5 times a week for the past 2-4 months; this is congruent with his sister's report. Diagnostics Vital Signs (24Hr): Vital Signs - 24 hr 04/20/21 18:00 04/21/21 06:00 Temperature 98.1 F 97.5 F Pulse Rate 69 85 Respiratory Rate 16 18 Blood Pressure 121/78 105/69 Pulse Oximetry 98 100 BMI result Body Mass Index 23.8 Labs Results: 04/18/21 07:59 04/15/21 07:16 Medications Medications Current Medications Acetaminophen (Acetaminophen 325 Mg Tablet) 650 mg PO Q6H PRN PRN Reason: Headache/Pain Mild Scale (1-3) Last Admin: 04/20/21 08:58 Dose: 650 mg Documented by: Al Hydroxide/Mg Hydroxide (Magnesium Hydrox/Alum Hydrox 30 Ml Oral.Susp) 30 ml PO Q6H PRN PRN Reason: Heartburn/Nausea Haloperidol (Haloperidol 5 Mg Tablet) 5 mg PO Q6H PRN PRN Reason: agitation Last Admin: 04/20/21 14:44 Dose: 5 mg Documented by: Hydroxyzine HCl (Hydroxyzine Hcl 25 Mg Tablet) 25 mg PO Q6H PRN PRN Reason: Anxiety Last Admin: 04/20/21 15:49 Dose: 25 mg Documented by: Ibuprofen (Ibuprofen 600 Mg Tablet) 600 mg PO Q6H PRN PRN Reason: Pain, Moderate (Pain Scale 4-6 Last Admin: 04/21/21 08:48 Dose: 600 mg Documented by: Lorazepam (Lorazepam 1 Mg Tablet) 1 mg PO Q4H PRN PRN Reason: anxiety/agitation/sleep Last Admin: 04/20/21 15:49 Dose: 1 mg Documented by: Magnesium Hydroxide (Milk Of Magnesia 30 Ml Oral.Susp) 30 ml PO DAILY PRN PRN Reason: Constipation Nicotine Polacrilex (Nicotine Polacrilex 2 Mg Gum) 2 mg BUCCAL Q2H PRN PRN Reason: nicotine cessation Last Admin: 04/20/21 17:05 Dose: 2 mg Documented by: Olanzapine (Olanzapine Odt 10 Mg Tab.Rapdis) 10 mg TRANSLINGU BID ANA Last Admin: 04/21/21 08:42 Dose: 10 mg Documented by: Trazodone HCl (Trazodone Hcl 50 Mg Tablet) 50 mg PO BEDTIME PRN PRN Reason: Insomnia Last Admin: 04/20/21 19:22 Dose: 50 mg Documented by: Allergies Allergies Allergy/AdvReac Type Severity Reaction Status Date / Time No Known Allergies Allergy Verified 04/14/21 14:39 Assessment & Plan Assessment & Plan (1) Schizophrenia: Status: Acute Code(s): F20.9 - Schizophrenia, unspecified (2) Cocaine abuse: Status: Acute Code(s): F14.10 - Cocaine abuse, uncomplicated Plan Pt is a 25 yo male, history of psychotic disorder presents for what his family reports is unsafe behavior in the community. Patient is a poor historian without any insight. He endorses auditory hallucinations and paranoid delusions but does not recognize them and has s ymptoms of a psychiatric disorder. However he is taking Zyprexa 10 mg b.i.d.. Patient is repeatedly asking for discharge. At this time it is not clear to what level patient was being unsafe in the community; it is also not clear if he has a home to return to 04/18 patient's sister provided collateral information and reports that patient engages in unsafe behavior, acting and speaking in a disorganized way and with paranoid thinking; she reports that she and family feels scared around him. Allison nunez does say that he has auditory hallucinations and is worried people are following him. Patient however wants discharge. Patient does not acknowledge his unsafe or disorganized behavior and lacks insight it to his psychiatric illness; although he is currently taking antipsychotic medication he lacks insight into what it is for and his history is to stop medication upon discharge. Regarding cocaine use, patient said that he just used it 1 time when he was walking on the street and somewhat offered to him; this however seems incongruent given the fact that he was court ordered to a Section 35, January 2021 and was positive for cocaine on this Given these behaviors, how the family is scared of him, his drug abuse, his lack of insight and the high likelihood that pt will discontinue medication, content writer and team find that patient is in imminent risk of harm to both himself and others is unsafe for discharge at this time and team will petition court for involuntary comittment. 04/21 [facility] interpreter for the deaf When asked why patient came here he had 1st reiterated that he got hot water on his hand and ran out into the street to put ice on it. When he came back his family had called crisis in the police. He said also he had smoked crack cocaine once which may be part of it. He also at 1st said that it is not true that his sister and family were scared of and he also denied that he ever left the gas stove on. He said I am 25 years old. I cook I clean and when I am done cocaine I turned the gas off. However patient did acknowledge that when he 1st got here and the week prior to, he was worried that people were following him. He said he did not know if what he thought was a reality but he was afraid that someone was following him and coming up behind him. He also says he was having auditory hallucinations that would come on suddenly and scare him. He heard a voice say that someone is coming to kill him someone is coming to hit him which made him scared. Patient says that since he has been on the medication all the voices are gone. He also agreed that because of his delusion and auditory hallucinations he was hiding himself in the house, fearful. Upon reflection he agreed that this is probably why his family was feeling scared of him. Patient says this Zyprexa has made him feel much better. Poly Packer And Heat Sealer discussed his diagnosis and the symptoms of schizophrenia and also how without medication, the voices and fears will very likely return. Patient said that he likes the medication and will continue taking it on discharge. Patient's 3 day notice and petition to the court was discussed and patient understood why the hospital did not let him go right away. He agreed to retract his 3 day notice as the team agreed to work on discharging him early next week, just wanting to get appointments set in place and also to involve his sister in his discharge plan. Patient did retract to 3 day notice. He also put a new 1 in afterwards but just as an insurance policy. Regarding crack cocaine use, patient said that he was smoking about 4 to 5 times a week for the past 2-4 months; this is congruent with his sister's report. -patient is now able to demonstrate improved insight. He acknowledges that he has a psychiatric illness and that he needs medication to treat symptoms; he also says he agrees to continue with current medication regimen and wants a o utpatient provider to help him do so. He has the insight to recognize his behaviors scared his family. Patient reports that auditory hallucinations and delusional worries are gone and knows that it was his mind playing tricks on him. He was willing to retract his 3 day notice so the team can set up aftercare, further demonstrating good judgment and insight. Poly Packer And Heat Sealer and team would like to discuss this with his sister, with whom patient gives permission to talk, as she reported she and her family, including patient's mother have been scared of him and need to know that he is safe in order for him to return home. Patient agrees with this plan. Plan: On CV (Pt retracted 3 day notice) Q 15 minute checks Continue Zyprexa 10 mg b.i.d; there seems to be some improvement with zyprexa but pt continues to lack insight repeat WBC are WNL Poly Packer And Heat Sealer reviewed labs from [facility] and BUN/creatinine, UA, lytes, LFTs all within normal limits. Patient was positive for cocaine and had elevated CK I spent minutes with the patient and/or on the patient floor today, great er than?50% of which was spent counseling/coordinating care. Patient educated on: diagnosis, medication risk/benefits, substance abuse and therapeutic strategies Informed Consent: understands Reason for contiued inpatient stay Substantial Risk for: med/psych decompensation
[2021-04-21] MEDS: LORazepam 1 MG TABLET PO ×2 (12:32→16:35)
[2021-04-21] MEDS: HaloperidoL 5 MG TABLET PO ×2 (12:32→19:36)
[2021-04-21] MEDS: Nicotine Polacrilex 2 MG GUM BUCCAL ×3 (12:32→17:55)
[2021-04-21] MEDS: hydrOXYzine HCL 25 MG TABLET PO (17:55)
[2021-04-21 18:00] VITALS: BP 131/76; PULSE 80
[2021-04-22 06:00] VITALS: BP 103/51; PULSE 56; RESP 16; TEMP 36.6; O2SAT 98
[2021-04-22] MEDS: OLANZapine ODT 10 MG TAB.RAPDIS TRANSLINGU ×2 (08:41→19:44)
[2021-04-22] MEDS: Ibuprofen 600 MG TABLET PO ×2 (08:48→17:04)
[2021-04-22] MEDS: LORazepam 1 MG TABLET PO ×2 (11:50→17:04)
[2021-04-22] MEDS: Nicotine Polacrilex 2 MG GUM BUCCAL ×2 (11:52→15:09)
[2021-04-22] MEDS: HaloperidoL 5 MG TABLET PO ×2 (15:09→19:44)
[2021-04-22] MEDS: hydrOXYzine HCL 25 MG TABLET PO ×2 (15:09→19:44)
[2021-04-22 18:00] VITALS: BP 128/68; PULSE 79; RESP 16; TEMP 36.9; O2SAT 99
[2021-04-22] MEDS: traZODone HCL 50 MG TABLET PO (19:44)
--- NOTE | 2021-04-22 22:50 | P.PNPSI_ITS ---
Subjective Subjective Date of Service: 04/22/21 Reason For Visit: Unspecified Mental Disorder Interim History: pt says he's good sleeping well; he asks if plan for discharge is still for next saturday or saturday which fiction and nonfiction writer prose confirms. Pt said he's talked w/ his mother and had good conversation. No complaints, no requests. Mental Status Exam Mental Status Exam Narrative: Patient Appearance:combed hair Patient Orientation:?Person and Place, situation Level of Consciousness:?alert, oriented Patient Behavior:?cooperative, calm Mood Description:? good Affect Description:?congruent Patient Cognition Impaired:?No Ability to Follow Directions:?Fair Thought process: goal oriented; Hallucinations:?none Delusions:?denies Thought Content: Denies SI or HI; Judgment/insight:?fair Diagnostics Vital Signs (24Hr): Vital Signs - 24 hr 04/22/21 06:00 04/22/21 18:00 Temperature 98 F 98.4 F Pulse Rate 56 79 Respiratory Rate 16 16 Blood Pressure 103/51 L 128/68 Pulse Oximetry 98 99 BMI result Body Mass Index 23.8 Labs Results: 04/18/21 07:59 04/15/21 07:16 Medications Medications Current Medications Acetaminophen (Acetaminophen 325 Mg Tablet) 650 mg PO Q6H PRN PRN Reason: Headache/Pain Mild Scale (1-3) Last Admin: 04/20/21 08:58 Dose: 650 mg Documented by: Al Hydroxide/Mg Hydroxide (Magnesium Hydrox/Alum Hydrox 30 Ml Oral.Susp) 30 ml PO Q6H PRN PRN Reason: Heartburn/Nausea Haloperidol (Haloperidol 5 Mg Tablet) 5 mg PO Q6H PRN PRN Reason: agitation Last Admin: 04/22/21 19:44 Dose: 5 mg Documented by: Hydroxyzine HCl (Hydroxyzine Hcl 25 Mg Tablet) 25 mg PO Q6H PRN PRN Reason: Anxiety Last Admin: 04/22/21 19:44 Dose: 25 mg Documented by: Ibuprofen (Ibuprofen 600 Mg Tablet) 600 mg PO Q6H PRN PRN Reason: Pain, Moderate (Pain Scale 4-6 Last Admin: 04/22/21 17:04 Dose: 600 mg Documented by: Lorazepam (Lorazepam 1 Mg Tablet) 1 mg PO Q4H PRN PRN Reason: anxiety/agitation/sleep Last Admin: 04/22/21 17:04 Dose: 1 mg Documented by: Magnesium Hydroxide (Milk Of Magnesia 30 Ml Oral.Susp) 30 ml PO DAILY PRN PRN Reason: Constipation Nicotine Polacrilex (Nicotine Polacrilex 2 Mg Gum) 2 mg BUCCAL Q2H PRN PRN Reason: nicotine cessation Last Admin: 04/22/21 15:09 Dose: 2 mg Documented by: Olanzapine (Olanzapine Odt 10 Mg Tab.Rapdis) 10 mg TRANSLINGU BID ANA Last Admin: 04/22/21 19:44 Dose: 10 mg Documented by: Trazodone HCl (Trazodone Hcl 50 Mg Tablet) 50 mg PO BEDTIME PRN PRN Reason: Insomnia Last Admin: 04/22/21 19:44 Dose: 50 mg Documented by: Allergies Allergies Allergy/AdvReac Type Severity Reaction Status Date / Time No Known Allergies Allergy Verified 04/14/21 14:39 Assessment & Plan Assessment & Plan (1) Schizophrenia: Status: Acute Code(s): F20.9 - Schizophrenia, unspecified (2) Cocaine abuse: Status: Acute Code(s): F14.10 - Cocaine abuse, uncomplicated Plan Pt is a 25 yo male, history of psychotic disorder presents for what his family reports is unsafe behavior in the community. Patient is a poor historian without any insight. He endorses auditory hallucinations and paranoid delusions but does not recognize them and has symptoms of a psychiatric disorder. However he is taking Zyprexa 10 mg b.i.d.. Patient is repeatedly asking for discharge. At this time it is not clear to what level patient was being unsafe in the community; it is also not clear if he has a home to return to 04/18 patient's sister provided collateral information and reports that patient engages in unsafe behavior, acting and speaking in a disorganized way and with paranoid thinking; she reports that she and family feels scared around him. P atient does say that he has auditory hallucinations and is worried people are following him. Patient however wants discharge. Patient does not acknowledge his unsafe or disorganized behavior and lacks insight it to his psychiatric illness; although he is currently taking antipsychotic medication he lacks insight into what it is for and his history is to stop medication upon discharge. Regarding cocaine use, patient said that he just used it 1 time when he was walking on the street and somewhat offered to him; this however seems incongruent given the fact that he was court ordered to a Section 35, January 2021 and was positive for cocaine on this Given these behaviors, how the family is scared of him, his drug abuse, his lack of insight and the high likelihood that pt will discontinue medication, fiction and nonfiction writer prose and team find that patient is in imminent risk of harm to both himself and others is unsafe for discharge at this time and team will petition court for involuntary comittment. 04/19: Pt will continue on olanzapine 10 mg BID, continues to present as constricted, confused/ disorganized, and with poor insight. -patient is now able to demonstrate improved insight.? He acknowledges that he has a psychiatric illness and that he needs medication to treat symptoms; he also says he agrees to continue with current medication regimen and wants a outpatient provider to help him do so.? He has the insight to recognize his behaviors scared his family.? Patient reports that auditory hallucinations and delusional worries are gone and knows that it was his mind playing tricks on him.? He was willing to retract his 3 day notice so the team can set up aftercare, further demonstrating good judgment and insight.? Automatic Pilot Mechanic and team would like to discuss this with his sister, with whom patient gives permission to talk, as she reported she and her family, including patient's mother have be en scared of him and need to know that he is safe in order for him to return home.? Patient agrees with this plan. 04/22 remians stable Plan: Will petition court for involuntary commitment. Q 15 minute checks Continue Zyprexa 10 mg b.i.d; there seems to be some improvement with zyprexa but pt continues to lack insight ordered for [facility] learning and development director to help with interview. repeat WBC WNL Automatic Pilot Mechanic reviewed labs from [facility] and BUN/creatinine, UA, lytes, LFTs all within normal limits. Patient was positive for cocaine and had elevated CK I spent minutes with the patient and/or on the patient floor today, greater than?50% of which was spent counseling/coordinating care. Reason for contiued inpatient stay Substantial Risk for: stable for discharge
[2021-04-23 06:00] VITALS: BP 102/55; PULSE 60; TEMP 36.9; O2SAT 99
[2021-04-23] MEDS: Ibuprofen 600 MG TABLET PO ×2 (08:42→15:45)
[2021-04-23] MEDS: OLANZapine ODT 10 MG TAB.RAPDIS TRANSLINGU ×2 (08:44→19:56)
[2021-04-23] MEDS: HaloperidoL 5 MG TABLET PO ×2 (13:06→19:56)
[2021-04-23] MEDS: hydrOXYzine HCL 25 MG TABLET PO ×2 (13:06→19:56)
[2021-04-23] MEDS: Nicotine Polacrilex 2 MG GUM BUCCAL ×2 (14:03→14:40)
[2021-04-23] MEDS: LORazepam 1 MG TABLET PO ×2 (14:40→19:56)
--- NOTE | 2021-04-23 15:57 | P.PNPSI_ITS ---
Subjective Subjective Date of Service: 04/23/21 Reason For Visit: Unspecified Mental Disorder Interim History: Patient reports that he is doing well, sleeping well; No SI, HI or AVH. Last night patient witnessed impulsively singing to himself intermittently out loud while walking the hallway however otherwise remains with appropriate behavior and impulse control; no unsafe behavior exhibited. Patient asks if plan remains for him to discharge Saturday to which video games storywriter confirms is the plan. Patient asks video games storywriter to call his other sister in addition to Benita and gives video games storywriter the phone number. Mental Status Exam Mental Status Exam Narrative: Patient Appearance:hair messy but adequate hygiene Patient Orientation:?Person and Place, situation Level of Consciousness:?alert, oriented Patient Behavior:?cooperative, calm Mood Description:? good Affect Description:?congruent Patient Cognition Impaired:?No Ability to Follow Directions:?Fair Thought process: goal oriented; Hallucinations:?none Delusions:?denies Thought Content: Denies SI or HI; Judgment/insight:?fair Diagnostics Vital Signs (24Hr): Vital Signs - 24 hr 04/22/21 18:00 04/23/21 06:00 Temperature 98.4 F 98.4 F Pulse Rate 79 60 Respiratory Rate 16 Blood Pressure 128/68 102/55 L Pulse Oximetry 99 99 BMI result Body Mass Index 23.8 Labs Results: 04/18/21 07:59 04/15/21 07:16 Medications Medications Current Medications Acetaminophen (Acetaminophen 325 Mg Tablet) 650 mg PO Q6H PRN PRN Reason: Headache/Pain Mild Scale (1-3) Last Admin: 04/20/21 08:58 Dose: 650 mg Documented by: Al Hydroxide/Mg Hydroxide (Magnesium Hydrox/Alum Hydrox 30 Ml Oral.Susp) 30 ml PO Q6H PRN PRN Reason: Heartburn/Nausea Haloperidol (Haloperidol 5 Mg Tablet) 5 mg PO Q6H PRN PRN Reason: agitation Last Admin: 04/23/21 13:06 Dose: 5 mg Documented by: Hydroxyzine HCl (Hydroxyzine Hcl 25 Mg Tablet) 25 mg PO Q6H PRN PRN Reason: Anxiety Last Admin: 04/23/21 13:06 Dose: 25 mg Documented by: Ibuprofen (Ibuprofen 600 Mg Tablet) 600 mg PO Q6H PRN PRN Reason: Pain, Moderate (Pain Scale 4-6 Last Admin: 04/23/21 15:45 Dose: 600 mg Documented by: Lorazepam (Lorazepam 1 Mg Tablet) 1 mg PO Q4H PRN PRN Reason: anxiety/agitation/sleep Last Admin: 04/23/21 14:40 Dose: 1 mg Documented by: Magnesium Hydroxide (Milk Of Magnesia 30 Ml Oral.Susp) 30 ml PO DAILY PRN PRN Reason: Constipation Nicotine Polacrilex (Nicotine Polacrilex 2 Mg Gum) 2 mg BUCCAL Q2H PRN PRN Reason: nicotine cessation Last Admin: 04/23/21 14:40 Dose: 2 mg Documented by: Olanzapine (Olanzapine Odt 10 Mg Tab.Rapdis) 10 mg TRANSLINGU BID ANA Last Admin: 04/23/21 08:44 Dose: 10 mg Documented by: Trazodone HCl (Trazodone Hcl 50 Mg Tablet) 50 mg PO BEDTIME PRN PRN Reason: Insomnia Last Admin: 04/22/21 19:44 Dose: 50 mg Documented by: Allergies Allergies Allergy/AdvReac Type Severity Reaction Status Date / Time No Known Allergies Allergy Verified 04/14/21 14:39 Assessment & Plan Assessment & Plan (1) Schizophrenia: Status: Acute Code(s): F20.9 - Schizophrenia, unspecified (2) Cocaine abuse: Status: Acute Code(s): F14.10 - Cocaine abuse, uncomplicated Plan Pt is a 25 yo male, history of psychotic disorder presents for what his family reports is unsafe behavior in the community. Patient is a poor historian without any insight. He endorses auditory hallucinations and paranoid delusions but does not recognize them and has symptoms of a psychiatric disorder. However he is taking Zyprexa 10 mg b.i.d.. Patient is repeatedly asking for discharge. At this time it is not clear to what level patient was being unsafe in the community; it is also not clear if he has a home to return to 04/18 patient's sister provided collateral information and reports that patient engages in unsafe behavior, acting and speaking in a disorganized way and with paranoid thinking; she reports that she and family feels scared around him. Patient does say that he has auditory hallucinations and is worried people are following him. Patient however wants discharge. Patient does not acknowledge his unsafe or disorganized behavior and lacks insight it to his psychiatric illness; although he is currently taking antipsychotic medication he lacks ins ight into what it is for and his history is to stop medication upon discharge. Regarding cocaine use, patient said that he just used it 1 time when he was walking on the street and somewhat offered to him; this however seems incongruent given the fact that he was court ordered to a Section 35, January 2021 and was positive for cocaine on this Given these behaviors, how the family is scared of him, his drug abuse, his lack of insight and the high likelihood that pt will discontinue medication, video games storywriter and team find that patient is in imminent risk of harm to both himself and others is unsafe for discharge at this time and team will petition court for involuntary comittment. 04/19: Pt will continue on olanzapine 10 mg BID, continues to present as constricted, confused/ disorganized, and with poor insight. -patient is now able to demonstrate improved insight.? He acknowledges that he has a psychiatric illness and that he needs medication to treat symptoms; he also says he agrees to continue with current medication regimen and wants a outpatient provider to help him do so.? He has the insight to recognize his behaviors scared his family.? Patient reports that auditory hallucinations and delusional worries are gone and knows that it was his mind playing tricks on him.? He was willing to retract his 3 day notice so the team can set up aftercare, further demonstrating good judgment and insight.? Shingle Inspector and team would like to discuss this with his sister, with whom patient gives permission to talk, as she reported she and her family, including patient's mother have been scared of him and need to know that he is safe in order for him to return home.? Patient agrees with this plan. 04/22 remians stable 04/23 Remains stable, appropriate with peers and staff; some mild bizarre be havior, singing allowed intermittently by himself in the hallway however no unsafe behavior and otherwise in good impulse and behavioral control. Plan: Will petition court for involuntary commitment. Q 15 minute checks Continue Zyprexa 10 mg b.i.d; there seems to be some improvement with zyprexa but pt continues to lack insight ordered for [facility] diplomatic interpreter/translator to help with interview. repeat WBC WNL Shingle Inspector reviewed labs from [facility] and BUN/creatinine, UA, lytes, LFTs all within normal limits. Patient was positive for cocaine and had elevated CK I spent minutes with the patient and/or on the patient floor today, greater than?50% of which was spent counseling/coordinating care. Reason for contiued inpatient stay Substantial Risk for: stable for discharge
[2021-04-23] MEDS: traZODone HCL 50 MG TABLET PO (19:56)
[2021-04-23 20:00] VITALS: BP 126/75; PULSE 103; TEMP 36.4; O2SAT 98
[2021-04-24 06:00] VITALS: BP 108/59; PULSE 64; RESP 18; TEMP 36.6; O2SAT 99
[2021-04-24] MEDS: OLANZapine ODT 10 MG TAB.RAPDIS TRANSLINGU ×2 (08:28→19:31)
[2021-04-24] MEDS: hydrOXYzine HCL 25 MG TABLET PO ×2 (11:13→17:19)
[2021-04-24] MEDS: HaloperidoL 5 MG TABLET PO ×2 (11:13→17:19)
[2021-04-24] MEDS: Ibuprofen 600 MG TABLET PO ×2 (11:32→17:19)
--- NOTE | 2021-04-24 17:06 | P.PNPSI_ITS ---
Subjective Subjective Date of Service: 04/24/21 Reason For Visit: Unspecified Mental Disorder Interim History: Patient says that he is doing well. He said the medications are very helpful and that he is sleeping nicer... eating nicer. .. No anxiety, no voices... And that he will call and reach out to his outpatient provider if he should feel otherwise. Patient explained that he is eager to go home and address issues with his son and daughter who were living in [place]. Patient says he will continue taking medication and reiterates he understands this is what helped auditory hallucinations resolved. Mental Status Exam Mental Status Exam Narrative: Patient Appearance:hair messy but adequate hygiene Patient Orientation:?Person and Place, situation Level of Consciousness:?alert, oriented Patient Behavior:?cooperative, calm Mood Description:? good Affect Description:?congruent Patient Cognition Impaired:?No Ability to Follow Directions:?Fair Thought process: goal oriented; Hallucinations:?none Delusions:?denies Thought Content: Denies SI or HI; Judgment/insight:?fair Diagnostics Vital Signs (24Hr): Vital Signs - 24 hr 04/23/21 20:00 04/24/21 06:00 Temperature 97.6 F 97.9 F Pulse Rate 103 H 64 Respiratory Rate 18 Blood Pressure 126/75 108/59 L Pulse Oximetry 98 99 BMI result Body Mass Index 23.8 Labs Results: 04/18/21 07:59 04/15/21 07:16 Medications Medications Current Medications Acetaminophen (Acetaminophen 325 Mg Tablet) 650 mg PO Q6H PRN PRN Reason: Headache/Pain Mild Scale (1-3) Last Admin: 04/20/21 08:58 Dose: 650 mg Documented by: Al Hydroxide/Mg Hydroxide (Magnesium Hydrox/Alum Hydrox 30 Ml Oral.Susp) 30 ml PO Q6H PRN PRN Reason: Heartburn/Nausea Haloperidol (Haloperidol 5 Mg Tablet) 5 mg PO Q6H PRN PRN Reason: agitation Last Admin: 04/24/21 11:13 Dose: 5 mg Documented by: Hydroxyzine HCl (Hydroxyzine Hcl 25 Mg Tablet) 25 mg PO Q6H PRN PRN Reason: Anxiety Last Admin: 04/24/21 11:13 Dose: 25 mg Documented by: Ibuprofen (Ibuprofen 600 Mg Tablet) 600 mg PO Q6H PRN PRN Reason: Pain, Moderate (Pain Scale 4-6 Last Admin: 04/24/21 11:32 Dose: 600 mg Documented by: Magnesium Hydroxide (Milk Of Magnesia 30 Ml Oral.Susp) 30 ml PO DAILY PRN PRN Reason: Constipation Nicotine Polacrilex (Nicotine Polacrilex 2 Mg Gum) 2 mg BUCCAL Q2H PRN PRN Reason: nicotine cessation Last Admin: 04/23/21 14:40 Dose: 2 mg Documented by: Olanzapine (Olanzapine Odt 10 Mg Tab.Rapdis) 10 mg TRANSLINGU BID ANA Last Admin: 04/24/21 08:28 Dose: 10 mg Documented by: Trazodone HCl (Trazodone Hcl 50 Mg Tablet) 50 mg PO BEDTIME PRN PRN Reason: Insomnia Last Admin: 04/23/21 19:56 Dose: 50 mg Documented by: Allergies Allergies Allergy/AdvReac Type Severity Reaction Status Date / Time No Known Allergies Allergy Verified 04/14/21 14:39 Assessment & Plan Assessment & Plan (1) Schizophrenia: Status: Acute Code(s): F20.9 - Schizophrenia, unspecified (2) Cocaine abuse: Status: Acute Code(s): F14.10 - Cocaine abuse, uncomplicated Plan Pt is a 25 yo male, history of psychotic disorder presents for what his family reports is unsafe behavior in the community. Patient is a poor historian without any insight. He endorses auditory hallucinations and paranoid delusions but does not recognize them and has symptoms of a psychiatric disorder. However he is taking Zyprexa 10 mg b.i.d.. Patient is repeatedly asking for discharge. At this time it is not clear to what level patient was being unsafe in the community; it is also not clear if he has a home to return to 04/18 patient's sister provided collateral information and reports that patient engages in unsafe behavior, acting and speaking in a disorganized way and with paranoid thinking; she reports that she and family feels scared around him. Patient does say that he has auditory hallucinations and is worried people are following him. Patient however wants discharge. Patient does not acknowledge his unsafe or disorganized behavior and lacks insight it to his psychiatric illness; although he is currently taking antipsychotic medication he lacks insight into what it is for and his history is to stop medication upon discharge. Regarding cocaine use, patient said that he just used it 1 time when he was walking on the street and somewhat offered to him; this however seems incongruent given the fact that he was court ordered to a Section 35, January 2021 and was positive for cocaine on this Given these behaviors, how the family is scared of him, his drug abuse, his lack of insight and the high likelihood that pt will discontinue medication, pattern chart writer and team find that patient is in imminent risk of harm to both himself and others is unsafe for discharge at this time and team will petition court for involuntary comittment. 04/19: Pt will continue on olanzapine 10 mg BID, continues to present as constricted, confused/ disorganized, and with poor insight. -patient is now able to demonstrate improved insight.? He acknowledges that he has a psychiatric illness and that he needs medication to treat symptoms; he also says he agrees to continue with current medication regimen and wants a outpatient provider to help him do so.? He has the insight to recognize his behaviors scared his family.? Patient reports that auditory hallucinations and delusional worries are gone and knows that it was his mind playing tricks on him.? He was willing to retract his 3 day notice so the team can set up aftercare, further demonstrating good judgment and insight.? Credit Adjuster and team would like to discuss this with his sister, with whom patient gives permission to talk, as she reported she and her family, including patient's mother have been scared of him and need to know that he is safe in order for him to return home.? Patient agrees with this plan. 04/22 remians stable 04/23 Remains stable, appropriate with peers and staff; some mild bizarre behavior, singing allowed intermittently by himself in the hallway however no unsafe behavior and otherwise in good impulse and behavioral control. 04/24 patient remains stable, in good mood and with improved insight, knowing that he needs medications and is agreeing to continue taking them. Patient is not in imminent risk for harm to self or others at his request for discharge honored. Plan: 3 day notice Q 15 minute checks Continue Zyprexa 10 mg b.i.d; there seems to be some improvement with zyprexa but pt continues to lack insight ordered for [facility] cube machine tender to help with interview. repeat WBC WNL Credit Adjuster reviewed labs from [facility] and BUN/creatinine, UA, lytes, LFTs all within normal limits. Patient was positive for cocaine and had elevated CK I spent minutes with the patient and/or on the patient floor today, greater than?50% of which was spent counseling/coordinating care. Patient educated on: diagnosis and medication risk/benefits Informed Consent: understands Reason for contiued inpatient stay Substantial Risk for: stable for discharge
--- NOTE | 2021-04-24 17:28 | PM.PSYDC ---
DS: Providers Provider Date of Service: 04/25/21 Date of admission: 04/14/21 20:44 Date of discharge: 04/25/21 Primary care physician: Tyler Duffy MD Attending physician on admission: Alexandria Rutledge Consults: 04/14/21 14:40 Consult to Hospitalist Routine Consulting Provider: Hospitalist Reason For Exam: [facility] transfer Attending physician on discharge: Filiberto Arellano DS: Diagnosis Discharge Diagnosis (1) Schizophrenia: Status: Acute (2) Cocaine abuse: Status: Acute DS: Medications Discharge Medications Home Medications: Previous Rx's Medication Instructions Recorded hydroxyzine HCl 25 mg tablet 25 mg PO Q6H PRN 30 Days #30 tab 04/24/21 nicotine (polacrilex) 2 mg gum 2 mg BUCCAL Q2H PRN 30 Days #100 ea 04/24/21 olanzapine 10 mg tablet 10 mg PO BID 30 Days #60 tab 04/24/21 trazodone 50 mg tablet 50 mg PO BEDTIME PRN 30 Days #30 04/24/21 tab Mental Status Exam Mental Status Exam Narrative: Patient Appearance:adequate hygiene Patient Orientation:?Person and Place, situation Level of Consciousness:?alert, oriented Patient Behavior:?cooperative, calm Mood Description:? good Affect Description:?congruent Patient Cognition Impaired:?No Ability to Follow Directions:?Fair Thought process: goal oriented; Hallucinations:?none Delusions:?denies Thought Content: Denies SI or HI; Judgment/insight:?fair Data Data Completed and Pending Completed studies during hospitalization [Text1]: 04/18/21 07:59 WBC 4.8 RBC 5.07 Hgb 14.6 Hct 45.3 MCV 89.3 MCH 28.8 MCHC 32.2 RDW 12.5 Plt Count 196 MPV 10.6 Immature Gran % (Auto) 0.2 Neut % (Auto) 32.2 L Lymph % (Auto) 55.0 H [place] % (Auto) 7.0 Eos % (Auto) 5.0 H Baso % (Auto) 0.6 Lymph # (Auto) 2.7 [place] # (Auto) 0.3 Eos # (Auto) 0.2 Baso # (Auto) 0.0 Abs Immat Gran (auto) 0.01 Absolute Neuts (auto) 1.6 L Absolute Nucleated RBC 0.000 Nucleated RBC % (auto) 0.0 DS: Summary Hospital Course Hospital Course: Pt is a 25 yo male, history of psychotic disorder presents for what his family reports is unsafe behavior in the community. On admission, Patient is a poor historian without any insight.? He endorses auditory hallucinations and paranoid delusions but does not recognize them and has symptoms of a psychiatric disorder.? However he is taking Zyprexa 10 mg b.i.d. which was started at previous hospitalization the week prior.? Patient is repeatedly asking for discharge.? Patient gave MANDY to talk w/ sisters and patient's sister provided collateral information and reports that patient engages in unsafe behavior, acting and speaking in a disorganized way and with paranoid thinking; she reports that she and family feels scared around him.? Patient does say that he has auditory hallucinations and is worried people are following him.? Patient however could not acknowledge his unsafe or disorganized behavior and lacks insight that he suffers from a psychiatric illness; although he is currently taking antipsychotic medication he continued to the lacks insight into what the medication or his behaviors in the community or that his family is scared of him; he also significantly underreports his crack cocaine use for which he underwent Section 35, saying he only used it 1 time when he was walking on the street when someone offered it to him. Pt placed a 3 day notice Very much wanting discharge and talking about the need to go to [place] to see his 2 children and estranged however treatment team did not feel patient was safe for discharge and began petitioning court for involuntary commitment. Although patient lacked insight, he continue taking the medication and although he was intermittently internally preoccupied or exhibiting some mild odd behaviors, he was overall in good behavioral and impulse control, was polite and appropriate with peers and staff and did nothing unsafe. After few more days on medication Patient's insight improved. [employer] was able to secure a live [facility] time study technologist (video machine interpretation services sub par) And a probable discussion ensued. Patient was able to articulate his improved insight. [employer] and patient discussed his Symptoms and patient acknowledged that he has a psychiatric illness and that he needs medication to treat symptoms; he also says he agrees to continue with current medication regimen and wants a outpatient provider to help him do so.? He Also recognized why his behaviors scared his family.? Patient reports that auditory hallucinations and delusional worries are gone and knows that it was his mind playing tricks on him.? He retracted his 3 day notice so that the team can set up aftercare, further demonstrating good judgment and insight.? Patient remained in good behavioral control and remained appropriate with peers and staff. He also continued to demonstrate insight and good judgment and shared that on the medication the voices are gone, he is sleeping better, eating better and feels overall calm. Patient gave permission to discuss case with his sister who understood that patients symptoms and insight are improved and that pt was appropriate for discharge home. Patient is not in imminent risk for harm to self or others at his request for discharge honored. Time spent discussing smoking cessation with patient: 3 to 10 minutes Status at Discharge Functional status at discharge: independent ambulation Overall status at discharge: patient is back to baseline Time Spent with Patient Time attestation: Total time spent providing and/or coordinating discharge services: Time spent: Less than 30 minutes Discharge Plan Discharge Patient Disposition: Home, Self-Care Discharge Diagnosis: Schizophrenia, paranoid type Referrals: Samanta Chicas [Other] - 05/02/21 9:30 am (Initial Diagnostic evaluation with therapist in office at [facility].) Zoe Zavala [Other] - 05/26/21 2:00 pm (Initial Psychiatric Evaluation Appointment with psychiatric provider in office at [facility].) Zoe Zavala [Other] - 06/23/21 12:00 pm (Medication Management appointment with psychiatric provider in office at [facility]. ) Tyler Duffy MD [Primary Care Provider] - 05/03/21 10:00 am (in office) Discharge Medications: New nicotine (polacrilex) 2 mg Gum 2 mg buccal Q2H PRN (Reason: nicotine cessation) 30 Days Qty: 100 0RF hydroxyzine HCl 25 mg Tablet 25 mg PO Q6H PRN (Reason: Anxiety) 30 Days Qty: 30 0RF olanzapine 10 mg tablet 10 mg PO BID 30 Days Qty: 60 0RF trazodone 50 mg Tablet 50 mg PO BEDTIME PRN (Reason: Insomnia) 30 Days Qty: 30 0RF Discharge Orders: Discharge Order (Routine); Ordered 04/25/21 Ordered By: Filiberto Arellano Diet: regular diet Activity on Discharge: As tolerated Stand Alone Forms: Patient Portal Discharge page, Community Support Care Plan Goals: Maintain mood and safe behaviors Take medications as prescribed Continue to pursue sobriety Practice coping skills Continue with outpatient providers and reach out to them as needed Health Concerns: Mood stability and behaviors Sobriety Plan of Treatment: Follow up with your PCP, psychiatric provider and other outpatient providers regarding above concerns Take medications as prescribed Assessment: Risk assessment at time of discharge:? Patient was interviewed prior to discharge and found to be fully oriented and without any SI or HI. Patient has insight and demonstrates good judgment in terms of wanting to pursue treatment. Patient is not in imminent risk of harm to self or others and has a safety plan that includes presenting to the closest ER or calling 911 if feeling unsafe.? Patient has been observed closely by nursing and unit staff throughout admission; patient has not engaged in any behaviors that suggest dangerousness to self or others and has demonstrated appropriate behaviors and impulse control
[2021-04-24 19:30] VITALS: BP 135/65; PULSE 74; TEMP 37; O2SAT 99
[2021-04-24] MEDS: traZODone HCL 50 MG TABLET PO ×2 (19:31→21:32)
[2021-04-25 06:00] VITALS: BP 112/60; PULSE 82; RESP 18; TEMP 36.8; O2SAT 99
[2021-04-25] MEDS: OLANZapine ODT 10 MG TAB.RAPDIS TRANSLINGU (08:16)
[2021-04-25] MEDS: Ibuprofen 600 MG TABLET PO (10:14)
[2021-04-25] MEDS: hydrOXYzine HCL 25 MG TABLET PO (12:55)
[2021-04-25] MEDS: HaloperidoL 5 MG TABLET PO (12:55)
== END 2021-04-25 13:25 | disposition home or self-care (01) | DRG 750 ==
PROVIDERS: Social Worker; Admitting Provider Psychiatry & Neurology Psychiatry; PCP Internal Medicine; Visit Provider Psychiatry & Neurology Psychiatry
DX: F20.9 Schizophrenia, unspecified (principal); Z91.14 Patient's other noncompliance with medication regimen; F14.10 Cocaine abuse, uncomplicated; F17.210 Nicotine dependence, cigarettes, uncomplicated; Z71.6 Tobacco abuse counseling; Z79.899 Other long term (current) drug therapy
CPT/HCPCS: 36415; 80053; 80061; 83036; 84443; 85025